=== PATIENT | male | born 1995 ===

== ENCOUNTER → 2016-11-15 | Outpatient (REF) ==
--- NOTE | 2016-11-15 22:32 | REP ---
Clinical: Pain. Technique: AP and lateral views of the left forearm. Findings: No acute fracture or dislocation. Skeletal structures, joint spaces, and surrounding soft tissues are normal. No subcutaneous emphysema. Impression: Normal left forearm radiographs. Signed by Sean Gama MD 11/15/2016 10:23 P
--- NOTE | 2016-11-15 22:38 | REP ---
Clinical: Pain and disability. Technique: AP, lateral, bilateral oblique views of the left hand. Findings: Osseous structures, joint spaces, and surrounding soft tissues are normal. No acute or healed fracture/dislocation. No overt degenerative changes. Impression: Normal left hand radiographs. Signed by Sean Gama MD 11/15/2016 10:29 P
--- NOTE | 2016-11-15 22:45 | REP ---
Clinical: Pain and disability . Technique: AP, lateral, bilateral oblique views. Findings: The carpal bones, surrounding osseous structures, soft tissues, and joint spaces are normal. There is no evidence for acute fracture or dislocation. No subcutaneous emphysema or radiodense foreign body. Impression: Normal wrist series. No acute fracture or dislocation Signed by Sean Gama MD 11/15/2016 10:36 P
== END ==
LOC: M SMT 13:23
PROVIDERS: ATTEND Internal Medicine
DX: Z02.71 Encounter for disability determination (principal)